=== PATIENT | female | born 1980 | race Caucasian/White ===

== ENCOUNTER 2018-08-31 02:58 | Emergency (ER) | payer MEDICAID ==
[~2018-08-31] VITALS: Ht 162.6 cm; Wt 88.0 kg
[2018-08-31 03:11] VITALS: Ht 162.6 cm; Wt 88.0 kg
[2018-08-31 06:27] VITALS: BP 142/101
== END 2018-08-31 06:27 | disposition home or self-care (01) ==
LOC: ED 02:58
DX: Z13.89 Encounter for screening for other disorder (principal)
CPT/HCPCS: Q0092